=== PATIENT | female | born 1970 | race Caucasian/White ===

== ENCOUNTER 2016-12-11 10:10 | Emergency (ER) | payer BC ==
[~2016-12-11] VITALS: Ht 167.6 cm; Wt 71.7 kg
[2016-12-11] MEDS ORDERED: IOHEXOL 300 MG/ML 75 ML VIAL IV ONE (12:00)
[2016-12-11 12:15] LABS: BASO # 0.1 x10^3/uL (0.0-0.2); BASO % 1 % (0-3); EOS % 1 % (0-3); HEMATOCRIT 43.8 % (36.0-47.0); HEMOGLOBIN 14.8 g/dL (12.0-15.5); LYMPH # 2.1 x10^3/uL (1.0-4.8); LYMPH % 25 % (24-48); MEAN CORPUSCULAR HEMOGLOBIN 32 pg (25-35); MEAN CORPUSCULAR HGB CONC 34 g/dL (31-37); MEAN CORPUSCULAR VOLUME 96 fL (79-100); MONO % 6 % (0-9); NEUT % 68 % (31-73); PLATELET COUNT 226 x10^3/uL (140-400); RED BLOOD COUNT 4.55 x10^6/uL (3.50-5.40); WHITE BLOOD COUNT 8.6 x10^3/uL (4.0-11.0)
[2016-12-11] MEDS ORDERED: CONTRAST GIVEN MC PRN (12:15)
[2016-12-11 12:31] LABS: CALCIUM 9.2 mg/dL (8.5-10.1); CREATININE 0.9 mg/dL (0.6-1.0); GFR 66.8; POTASSIUM 4.2 mmol/L (3.5-5.1)
--- NOTE | 2016-12-11 13:07 | PHYS DOC ---
Past Medical History Past Medical History: GERD, UTI, Other Additional Past Medical Histor: OVARY ATTACHED TO BLADDER; ulcers to esophagus Past Surgical History: , Hysterectomy, Other Additional Past Surgical Histo: EXPLORATORY-d/t ovary rupture Smoking: Less than 1pk/day Alcohol Use: None Drug Use: None Adult General Chief Complaint Chief Complaint: OTHER COMPLAINTS [facility] HPI Patient is a 46 year old female who presents with right anterior neck swelling for 3 weeks. She denies any injury to her neck. She does not have any difficulty breathing or sore throat. She states that it feels different when she swallows but does not have difficulty swallowing. She states that her voice is more hoarse than usual. She has not had fever, nasal drainage, or cough. The patient was seen by her PCP for the swelling and had blood work done. She reports her elevated TSH and low T4. She had an ultrasound of the neck performed at an outpatient imaging center but has not received the results of this study. Her PCP is Dr. Galarza. Review of Systems Review of Systems Constitutional: Denies fever or chills. [] Eyes: Denies change in visual acuity, redness, or eye pain. [] HENT: Denies ear pain, nasal congestion or sore throat. [] Respiratory: Denies cough or shortness of breath. [] Cardiovascular: Denies chest pain, palpitations or edema. [] GI: Denies abdominal pain, nausea, vomiting, bloody stools or diarrhea. [] : Denies dysuria, hematuria or urinary frequency. [] Musculoskeletal: Denies back pain or joint pain. Reports right anterior neck swelling. Integument: Denies rash or skin lesions. [] Neurologic: Denies headache, focal weakness or sensory changes. [] Endocrine: Denies polyuria or polydipsia. [] Psych: Denies anxiety or depression. [] All systems reviewed and negative unless otherwise stated in the HPI. Current Medications Current Medications Current Medications Medications (Trade) Dose Ordered Sig/Neida Start Time Stop Time Status Last Admin Dose Admin Info (Do NOT chart on this entry -- for MONITORING) 1 each PRN DAILY PRN 12/11/16 12:15 12/13/16 12:14 Iohexol (Omnipaque 300 Mg/ml) 75 ml 1X ONCE 12/11/16 12:00 12/11/16 12:04 DC 12/11/16 12:54 75 ML Allergies Allergies Allergies Coded Allergies Type Severity Reaction Last Updated Verified Penicillins Allergy Severe Anaphylaxis 08/14/14 Yes ciprofloxacin HCl Allergy Intermediate Hives 12/11/16 Yes erythromycin base Allergy Intermediate 12/11/16 Yes sulfacetamide sodium Allergy Intermediate Hives 12/11/16 Yes Physical Exam Physical Exam Constitutional: Well developed, well nourished, no acute distress, non-toxic appearance. [] HENT: Normocephalic, atraumatic, bilateral external ears normal, oropharynx moist, no oral exudates, nose normal. [] Eyes: PERRLA, EOMI, conjunctiva normal, no discharge. [] Neck: Normal range of motion, no tenderness, supple, no stridor. There is swelling over the distal end of the sternocleidomastoid muscle on the right. There is no tenderness, erythema, or induration. There is no palpable enlargement of the thyroid gland. Cardiovascular: Heart rate regular rhythm, no murmur [] Lungs & Thorax: Bilateral breath sounds clear to auscultation without wheezes, rales, or rhonchi. Skin: Warm, dry, no erythema, no rash. [] Neurologic: Alert and oriented X 3, normal motor function, normal sensory function, no focal deficits noted. [] Psychologic: Affect normal, judgement normal, mood normal. [] Current Patient Data Vital Signs Vital Signs Date Time Temp Pulse Resp B/P Pulse Ox O2 Delivery O2 Flow Rate FiO2 12/11/16 12:30 66 18 125/74 98 Room Air 12/11/16 10:30 97.9 97.9 Lab Values Laboratory Tests Test 12/11/16 12:00 White Blood Count 8.6x10^3/uL (4.0-11.0) Red Blood Count 4.55x10^6/uL (3.50-5.40) Hemoglobin 14.8g/dL (12.0-15.5) Hematocrit 43.8% (36.0-47.0) Mean Corpuscular Volume 96fL (79-100) Mean Corpuscular Hemoglobin 32pg (25-35) Mean Corpuscular Hemoglobin Concent 34g/dL (31-37) Red Cell Distribution Width 14.0% (11.5-14.5) Platelet Count 226x10^3/uL (140-400) Neutrophils (%) (Auto) 68% (31-73) Lymphocytes (%) (Auto) 25% (24-48) Monocytes (%) (Auto) 6% (0-9) Eosinophils (%) (Auto) 1% (0-3) Basophils (%) (Auto) 1% (0-3) Neutrophils # (Auto) 5.8x10^3uL (1.8-7.7) Lymphocytes # (Auto) 2.1x10^3/uL (1.0-4.8) Monocytes # (Auto) 0.5x10^3/uL (0.0-1.1) Eosinophils # (Auto) 0.1x10^3/uL (0.0-0.7) Basophils # (Auto) 0.1x10^3/uL (0.0-0.2) Sodium Level 139mmol/L (136-145) Potassium Level 4.2mmol/L (3.5-5.1) Chloride Level 103mmol/L (98-107) Carbon Dioxide Level 29mmol/L (21-32) Anion Gap 7 (6-14) Blood Urea Nitrogen 16mg/dL (7-20) Creatinine 0.9mg/dL (0.6-1.0) Estimated GFR (Cockcroft-Gault) 66.8 Glucose Level 86mg/dL (70-99) Calcium Level 9.2mg/dL (8.5-10.1) Laboratory Tests 12/11/16 12:00 Laboratory Tests 12/11/16 12:00 EKG EKG [] Radiology/Procedures Radiology/Procedures REASON: right neck swelling CT of the neck with contrast, 12/11/2016: History: Neck lump and swelling Multidetector CT imaging was performed following an IV bolus injection of iodinated contrast material. A BB was placed over the area of reported palpable concern in the right neck. No underlying mass or other abnormality is seen in the area of reported concern. No cervical adenopathy is seen. The thyroid, parotid and submandibular glands are unremarkable. No abnormality is evident in the laryngeal region. The airway is unremarkable. IMPRESSION: No significant abnormality is detected. Course & Med Decision Making Course & Med Decision Making Pertinent Labs and Imaging studies reviewed. (See chart for details) Patient presents with right anterior neck swelling for 3 weeks. She does not have any dyspnea, dysphagia, or pharyngitis. On exam, there is swelling over the sternocleidomastoid muscle without thyroid enlargement. The patient was seen and examined by Dr. Corbett as well. There are no significant laboratory abnormalities today. CT of soft tissue neck with contrast does not show any abnormalities. I discussed results with patient. She is instructed follow-up with her PCP. Return precautions were discussed. She verbalizes understanding and agrees with plan. Dragon Disclaimer Dragon Disclaimer This electronic medical record was generated, in whole or in part, using a voice recognition dictation system. Departure Departure Impression: Primary Impression: Localized swelling, mass and lump, neck Disposition: 01 HOME, SELF-CARE Condition: STABLE Referrals: ANA MARIA GALARZA (PCP) Patient Instructions: Soft Tissue Injury of the Neck, [id number] Additional Instructions: Your CT did not show any concerning findings today. Your lab work was normal today. We did not test your thyroid function again today. Please follow-up with your primary care doctor regarding the swelling in your neck. Return to the emergency department if you have difficulty breathing, difficulty swallowing, or other new or concerning symptoms. MASOOD HAMILTON Dec 11, 2016 13:07
--- NOTE | 2016-12-11 13:18 | RAD ---
PQRS Compliance Statement: One or more of the following individualized dose reduction techniques were utilized for this examination: 1. Automated exposure control 2. Adjustment of the mA and/or kV according to patient size 3. Use of iterative reconstruction technique CT of the neck with contrast, 12/11/2016: History: Neck lump and swelling Multidetector CT imaging was performed following an IV bolus injection of iodinated contrast material. A BB was placed over the area of reported palpable concern in the right neck. No underlying mass or other abnormality is seen in the area of reported concern. No cervical adenopathy is seen. The thyroid, parotid and submandibular glands are unremarkable. No abnormality is evident in the laryngeal region. The airway is unremarkable. IMPRESSION: No significant abnormality is detected.
[2016-12-11 14:36] VITALS: BP 104/75
[2016-12-11] MEDS ORDERED: FAMO20TA5 PO (22:39)
== END 2016-12-11 14:37 | disposition home or self-care (01) ==
LOC: ER 10:10
DX: R22.1 Localized swelling, mass and lump, neck (principal); F17.210 Nicotine dependence, cigarettes, uncomplicated; K21.9 Gastro-esophageal reflux disease without esophagitis; Z88.0 Allergy status to penicillin; Z88.1 Allergy status to other antibiotic agents; Z88.2 Allergy status to sulfonamides
CPT/HCPCS: 36415; 70491; 80048; 85027; 99285; Q9967

== ENCOUNTER 2016-12-11 20:30 | Emergency (ER) | payer BC ==
[~2016-12-11] VITALS: Ht 167.6 cm; Wt 71.7 kg
[2016-12-11 21:01] VITALS: BP 138/76
[2016-12-11] MEDS ORDERED: LIDO:MAALOX:DONNATAL 1:1:1 15 ML SINGLE DOSE SWSW ONE (21:45)
[2016-12-11] MEDS ORDERED: FAMO20TA5 PO (22:39)
--- NOTE | 2016-12-11 22:39 | PHYS DOC ---
Past Medical History Past Medical History: GERD, P.U.D., UTI, Other Past Surgical History: , Hysterectomy, Other Additional Past Surgical Histo: Exploratory laparoscopy Alcohol Use: None Drug Use: None Adult General Chief Complaint Chief Complaint: CHEST PAIN HPI HPI Patient is a 46 year old female who presents with burning epigastric abdominal pain radiating into her right upper chest and back that has started over the past few hours. She does have slight nausea has developed as her symptoms have worsened. States she has felt this way with prior acid reflux pain. She was prior seen and evaluated in the ED for a different complaint and wanted to also be evaluated for this after she left. She denies cough, dyspnea, palpitations, diaphoresis, exertional symptoms, orthopnea, hemoptysis, leg pain or swelling, dark or bloody stools.. Review of Systems Review of Systems Constitutional: Denies fever or chills [] Eyes: Denies change in visual acuity, redness, or eye pain [] HENT: Denies nasal congestion or sore throat [] Respiratory: Denies cough or shortness of breath [] Cardiovascular: No additional information not addressed in HPI [] GI: Denies vomiting, bloody stools or diarrhea [] : Denies dysuria or hematuria [] Musculoskeletal: Denies back pain or joint pain [] Integument: Denies rash or skin lesions [] Neurologic: Denies headache, focal weakness or sensory changes [] Endocrine: Denies polyuria or polydipsia [] Current Medications Current Medications Current Medications Medications (Trade) Dose Ordered Sig/Neida Start Time Stop Time Status Last Admin Dose Admin Multi-Ingredient Mouthwash/Gargle (Gi Cocktail Single Dose) 15 ml 1X ONCE 12/11/16 21:45 12/11/16 21:46 DC 12/11/16 22:17 15 ML Allergies Allergies Allergies Coded Allergies Type Severity Reaction Last Updated Verified Penicillins Allergy Severe Anaphylaxis 08/14/14 Yes ciprofloxacin HCl Allergy Intermediate Hives 12/11/16 Yes erythromycin base Allergy Intermediate 12/11/16 Yes sulfacetamide sodium Allergy Intermediate Hives 12/11/16 Yes Physical Exam Physical Exam Constitutional: Well developed, well nourished, no acute distress, non-toxic appearance. [] HENT: Normocephalic, atraumatic, bilateral external ears normal, oropharynx moist, no oral exudates, nose normal. [] Eyes: PERRLA, EOMI. [] Neck: Normal range of motion, supple. [] Cardiovascular:Heart rate regular rhythm [] Lungs & Thorax: Bilateral breath sounds clear to auscultation [] Abdomen: Bowel sounds normal, soft, no tenderness. [] Skin: Warm, dry, no erythema, no rash. [] Back: No tenderness, no CVA tenderness. [] Extremities: ROM intact, no edema. [] Neurologic: Alert and oriented X 3, normal motor function, normal sensory function, no focal deficits noted. [] Psychologic: Affect normal, judgement normal, mood normal. [] Current Patient Data Vital Signs Vital Signs Date Time Temp Pulse Resp B/P Pulse Ox O2 Delivery O2 Flow Rate FiO2 12/11/16 21:01 98.1 69 20 138/76 98 Room Air 98.1 Lab Values Laboratory Tests Test 12/11/16 20:56 Troponin I Quantitative < 0.017ng/mL (0.000-0.055) EKG EKG EKG as interpreted by me as normal sinus rhythm, rate 71, no ST-T changes, normal intervals, no ectopy Course & Med Decision Making Course & Med Decision Making Pertinent Labs and Imaging studies reviewed. (See chart for details) Workup is unremarkable. She is feeling better after GI cocktail. Discussed she should follow up with GI clinic and she stated she would like to contact information for GI clinic. Return precautions given. She understands and agrees with plan. Dragon Disclaimer Dragon Disclaimer This electronic medical record was generated, in whole or in part, using a voice recognition dictation system. Departure Departure Impression: Primary Impression: Chest pain Disposition: 01 HOME, SELF-CARE Condition: STABLE Referrals: ANA MARIA GALARZA (PCP) CHIQUIS DOMINGO MD Patient Instructions: Gastritis, Adult, [id number] Additional Instructions: Take famotidine for possible gastritis. Follow-up with your primary care doctor and GI clinic. Please call [phone] for GI clinic appointment. Return for any concerns. Scripts Famotidine 20 Mg [id number] Mg PO BID #30 TAB Prov:Satinder MELENDEZ MD 12/11/16 Problem Qualifiers Primary Impression: Chest pain Chest pain type: unspecified Qualified Code: R07.9 - Chest pain, unspecified Satinder MELENDEZ MD Dec 11, 2016 22:39
--- NOTE | 2016-12-12 14:17 | EKG ---
[facility] [address] [place] [address] Test Date: 2016-12-11 Test Time: 20:40:45 Pat Name: MELINDA RAMOS Department: Room: Gender: F Regional Program Manager: : 1970 Requested By: Satinder MELENDEZ Order Number: [id number] Reading MD: Measurements Intervals Brant Rate: 71 P: 34 MT: 138 QRS: 33 QRSD: 80 T: 32 QT: 372 QTc: 409 Interpretive Statements SINUS RHYTHM NORMAL ECG RI6.01 Unconfirmed report No previous ECG available for comparison
== END 2016-12-11 22:56 | disposition home or self-care (01) ==
LOC: ER 20:30
DX: R07.9 Chest pain, unspecified (principal); R10.13 Epigastric pain; K21.9 Gastro-esophageal reflux disease without esophagitis; Z88.0 Allergy status to penicillin; Z87.440 Personal history of urinary (tract) infections; Z87.11 Personal history of peptic ulcer disease; Z90.710 Acquired absence of both cervix and uterus; Z88.1 Allergy status to other antibiotic agents; Z88.8 Allergy status to other drugs, medicaments and biological substances
CPT/HCPCS: 36415; 84484; 93005; 99285-25

== ENCOUNTER 2017-04-18 12:59 | Emergency (ER) | payer BC ==
[~2017-04-18] VITALS: Ht 167.6 cm; Wt 71.7 kg
[~2017-04-18 12:59] MED LIST: FAMO20TA5 PO
--- NOTE | 2017-04-18 13:35 | PHYS DOC ---
Past Medical History Past Medical History: GERD, P.U.D., UTI, Other Additional Past Medical Histor: OVARY ATTACHED TO BLADDER; ulcers to esophagus Past Surgical History: , Hysterectomy, Other Additional Past Surgical Histo: Exploratory laparoscopy Alcohol Use: None Drug Use: None Adult General Chief Complaint Chief Complaint: GERD HPI HPI Patient is a 46 year old female who presents with achy chest and upper back pain. Pt reports symptoms are similar to prior episodes where the pt received a GI cocktail and this resolves her symptoms. Reports h/o 80mg daily omeprazole and missed two doses, she thinks this caused her symptoms. He is been seen 2 times in the ER for similar complaints in the past. She states the first time she had an extensive workup and cardiology follow-up with negative stress test and no cardiac findings. 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 She went on vacation forgot her medication that's why she missed her doses. She states the other time she is coming to the ER she's received a GI cocktail and her symptoms completely resolved. Review of Systems Review of Systems Constitutional: Denies fever or chills [] Eyes: Denies change in visual acuity, redness, or eye pain [] HENT: Denies nasal congestion or sore throat [] Respiratory: Denies cough or shortness of breath [] Cardiovascular: No additional information not addressed in HPI [] GI: Denies abdominal pain, nausea, vomiting, bloody stools or diarrhea [] : Denies dysuria or hematuria [] Musculoskeletal: Denies back pain or joint pain [] Integument: Denies rash or skin lesions [] Neurologic: Denies headache, focal weakness or sensory changes [] Current Medications Current Medications Current Medications Medications (Trade) Dose Ordered Sig/Neida Start Time Stop Time Status Last Admin Dose Admin Multi-Ingredient Mouthwash/Gargle (Gi Cocktail Single Dose) 15 ml 1X ONCE 04/18/17 13:45 04/18/17 13:46 DC 04/18/17 13:33 15 ML Allergies Allergies Allergies Coded Allergies Type Severity Reaction Last Updated Verified Penicillins Allergy Severe Anaphylaxis 08/14/14 Yes ciprofloxacin HCl Allergy Intermediate Hives 12/11/16 Yes erythromycin base Allergy Intermediate 12/11/16 Yes sulfacetamide sodium Allergy Intermediate Hives 12/11/16 Yes Physical Exam Physical Exam Constitutional: Well developed, well nourished, no acute distress, non-toxic appearance. [] HENT: Normocephalic, atraumatic, bilateral external ears normal, oropharynx moist, no oral exudates, nose normal. [] Eyes: PERRLA, EOMI, conjunctiva normal, no discharge. [] Neck: Normal range of motion, no tenderness, supple, no stridor. [] Cardiovascular:Heart rate regular with regular rhythm, no murmur [] Lungs & Thorax: Bilateral breath sounds clear to auscultation, no wheeze or crackles. Abdomen: Bowel sounds normal, soft, no tenderness, no masses, no pulsatile masses. [] Skin: Warm, dry, no erythema, no rash. [] Back: No tenderness, no CVA tenderness. [] Extremities: No tenderness, no cyanosis, no clubbing, ROM intact, no edema. [] Neurologic: Alert and oriented X 3, normal motor function, normal sensory function, no focal deficits noted. [] Psychologic: Affect normal, judgement normal, mood normal. [] Current Patient Data Vital Signs Vital Signs Date Time Temp Pulse Resp B/P (MAP) Pulse Ox O2 Delivery O2 Flow Rate FiO2 04/18/17 14:32 65 20 102/66 (78) 96 04/18/17 13:21 98.2 Room Air 98.2 EKG EKG 63 bpm, sinus, normal axis, normal intervals, no ST elevation or depression, nonischemic T waves, interpreted by me [] Radiology/Procedures Radiology/Procedures [] Course & Med Decision Making Course & Med Decision Making Pertinent Labs and Imaging studies reviewed. (See chart for details) Pt given a GI cocktail and her symptoms resolved. Patient's requesting to leave , requesting a lidocaine prescription. I did give her oropharyngeal lidocaine prescription and recommend that she attempts Maalox if she has a similar symptom. She is to follow-up with her primary care physician as well as continue her medication. Return precautions given. Dragon Disclaimer Dragon Disclaimer This electronic medical record was generated, in whole or in part, using a voice recognition dictation system. Departure Departure Impression: Primary Impression: GERD (gastroesophageal reflux disease) Disposition: HOME, SELF-CARE Condition: STABLE Referrals: ANA MARIA GALARZA (PCP) VA REAVES MD Apr 18, 2017 13:35
--- NOTE | 2017-04-18 13:36 | EKG ---
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
[2017-04-18] MEDS ORDERED: LIDO:MAALOX:DONNATAL 1:1:1 15 ML SINGLE DOSE SWSW ONE (13:45)
[2017-04-18 14:32] VITALS: BP 102/66
== END 2017-04-18 14:32 | disposition home or self-care (01) ==
LOC: ER 12:59
DX: K21.9 Gastro-esophageal reflux disease without esophagitis (principal); K22.70 Barrett's esophagus without dysplasia; Z87.440 Personal history of urinary (tract) infections; Z90.710 Acquired absence of both cervix and uterus; Z98.890 Other specified postprocedural states; Z87.11 Personal history of peptic ulcer disease; Z88.0 Allergy status to penicillin; Z88.1 Allergy status to other antibiotic agents; Z88.2 Allergy status to sulfonamides
CPT/HCPCS: 93005; 99283-25

== ENCOUNTER 2017-12-06 20:12 | Emergency (ER) | payer BC ==
[2017-12-06 20:57] LABS: ADD MAN DIFF? NO
[2017-12-06 20:58] LABS: BASO # 0.1 x10^3/uL (0.0-0.2); BASO % 1 % (0-3); EOS # 0.2 x10^3/uL (0.0-0.7); EOS % 2 % (0-3); HEMATOCRIT 46.1 % (36.0-47.0); HEMOGLOBIN 15.5 g/dL (12.0-15.5); LYMPH % 38 % (24-48); MEAN CORPUSCULAR HEMOGLOBIN 32 pg (25-35); MEAN CORPUSCULAR HGB CONC 34 g/dL (31-37); MEAN CORPUSCULAR VOLUME 95 fL (79-100); MONO # 0.6 x10^3/uL (0.0-1.1); MONO % 8 % (0-9); NEUT % 51 % (31-73); PLATELET COUNT 222 x10^3/uL (140-400); RED BLOOD COUNT 4.87 x10^6/uL (3.50-5.40); RED CELL DISTRIBUTION WIDTH 13.1 % (11.5-14.5)
[2017-12-06 21:05] LABS: BILIRUBIN,URINE NEGATIVE (NEG); CLARITY,URINE CLEAR; COLOR,URINE YELLOW; GLUCOSE,URINE NEGATIVE (NEG); NITRITE,URINE NEGATIVE (NEG); PH,URINE 6.5; PROTEIN,URINE NEGATIVE (NEG-TRACE); UROBILINOGEN,URINE 0.2 mg/dL (0.2 mg/dL)
[2017-12-06 21:08] LABS: ANION GAP 10 (6-14); BLOOD UREA NITROGEN 15 mg/dL (7-20); BUN/CREATININE RATIO 17 (6-20); CALCIUM 9.3 mg/dL (8.5-10.1); CARBON DIOXIDE 27 mmol/L (21-32); CHLORIDE 104 mmol/L (98-107); CREATININE 0.9 mg/dL (0.6-1.0); GFR 66.5; GLUCOSE 96 mg/dL (70-99); POTASSIUM 3.8 mmol/L (3.5-5.1); SODIUM 141 mmol/L (136-145)
[2017-12-06 21:11] LABS: BACTERIA,URINE MODERATE /HPF (0-FEW); RBC,URINE RARE /HPF (0-2); SQUAMOUS EPITHELIAL CELL,UR MOD /LPF
[2017-12-06] MEDS: ONDANSETRON PF 4 MG/2 ML VIAL. IV ×2 (21:12)
[2017-12-06] MEDS: IV NORMAL SALINE 1000ML BAG 1,000 ML IV ×2 (21:12)
[2017-12-06 21:13] LABS: ALBUMIN 4.1 g/dL (3.4-5.0); ALBUMIN/GLOBULIN RATIO 1.1 (1.0-1.7); ALK PHOS 54 U/L (46-116); ALT (SGPT) 27 U/L (14-59); AST (SGOT) 17 U/L (15-37); TOTAL BILIRUBIN 0.3 mg/dL (0.2-1.0); TOTAL PROTEIN 7.7 g/dL (6.4-8.2)
[2017-12-06] MEDS: fentaNYL PF VIAL 100 MCG/2 ML VIAL IV ×2 (21:13)
[2017-12-06 21:17] LABS: TROPONINI < 0.017 ng/mL (0.000-0.055)
[2017-12-06] MEDS ORDERED: CONTRAST GIVEN MC ×2 (21:30)
[2017-12-06] MEDS: IOHEXOL 300 MG/ML 100ML VIAL. IV ×2 (21:44)
== END 2017-12-06 22:52 | disposition home or self-care (01) ==
LOC: ER 20:12
DX: R51 Headache (principal); M54.2 Cervicalgia; F17.200 Nicotine dependence, unspecified, uncomplicated; Z88.1 Allergy status to other antibiotic agents; Z90.710 Acquired absence of both cervix and uterus; Z88.0 Allergy status to penicillin; Z88.2 Allergy status to sulfonamides
CPT/HCPCS: 36415; 70450; 70496; 70498; 71045; 80053; 81001; 84484; 85025; 87086; 87186; 93005; 96361; 96374; 96375; 99285-25; J2405; J3010; J7030; Q9967

== ENCOUNTER 2019-04-20 12:08 | Emergency (ER) | payer BC ==
[~2019-04-20] VITALS: Ht 167.6 cm; Wt 66.7 kg
[2019-04-20 12:54] VITALS: BP 150/65
[2019-04-20] MEDS ORDERED: LIDO:MAALOX 1:1 20 ML SINGLE DOSE. SWSW ONE (13:15)
[2019-04-20] MEDS ORDERED: IV NORMAL SALINE 1000ML BAG 1,000 ML IV ONE (13:15)
[2019-04-20] MEDS ORDERED: ONDANSETRON PF 4 MG/2 ML VIAL. IV ONE (13:15)
[2019-04-20] MEDS ORDERED: FAMOTIDINE 20 MG/2 ML VIAL IVP ONE (13:15)
[2019-04-20 13:30] LABS: BILIRUBIN,URINE NEGATIVE (NEG); CLARITY,URINE CLEAR; COLOR,URINE YELLOW; NITRITE,URINE NEGATIVE (NEG); PROTEIN,URINE NEGATIVE (NEG-TRACE); UROBILINOGEN,URINE 0.2 mg/dL (0.2 mg/dL)
[2019-04-20 13:40] LABS: BACTERIA,URINE MANY /HPF (0-FEW); RBC,URINE 0 /HPF (0-2)
[2019-04-20 14:05] LABS: BASO % 1 % (0-3); EOS # 0.1 x10^3/uL (0.0-0.7); EOS % 2 % (0-3); HEMATOCRIT 42.7 % (36.0-47.0); HEMOGLOBIN 14.3 g/dL (12.0-15.5); LYMPH # 1.7 x10^3/uL (1.0-4.8); LYMPH % 31 % (24-48); MEAN CORPUSCULAR HEMOGLOBIN 32 pg (25-35); MEAN CORPUSCULAR HGB CONC 34 g/dL (31-37); MEAN CORPUSCULAR VOLUME 95 fL (79-100); MONO # 0.5 x10^3/uL (0.0-1.1); MONO % 9 % (0-9); NEUT # 3.3 x10^3uL (1.8-7.7); NEUT % 58 % (31-73); PLATELET COUNT 201 x10^3/uL (140-400); RED BLOOD COUNT 4.51 x10^6/uL (3.50-5.40); RED CELL DISTRIBUTION WIDTH 13.5 % (11.5-14.5); WHITE BLOOD COUNT 5.6 x10^3/uL (4.0-11.0)
--- NOTE | 2019-04-20 14:15 | PHYS DOC ---
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 Patient denies any vomiting but states she's been nauseated. Denies any diarrhea. She states she had an upper GI scope in November which diagnosed her w ith stomach ulcers. She states she was put on Zantac which she takes every day. Review of Systems Review of Systems Constitutional: Denies fever or chills [] Eyes: Denies change in visual acuity, redness, or eye pain [] HENT: Denies nasal congestion or sore throat [] Respiratory: Denies cough or shortness of breath [] Cardiovascular: No additional information not addressed in HPI [] GI: Reports bilateral abdominal pain nausea, denies vomiting, bloody stools or diarrhea [] : Denies dysuria or hematuria [] Musculoskeletal: Denies back pain or joint pain [] Integument: Denies rash or skin lesions [] Neurologic: Denies headache, focal weakness or sensory changes [] All other systems were reviewed and found to be within normal limits, except as documented in this note. Current Medications Current Medications Current Medications Medications (Trade) Dose Ordered Sig/Neida Start Time Stop Time Status Last Admin Dose Admin Famotidine (Pepcid Vial) 20 mg 1X ONCE 04/20/19 13:15 04/20/19 13:16 DC 04/20/19 13:42 20 MG Info (CONTRAST GIVEN -- Rx MONITORING) 1 each PRN DAILY PRN 04/20/19 14:45 04/22/19 14:44 Iohexol (Omnipaque 300 Mg/ml) 75 ml 1X ONCE 04/20/19 14:45 04/20/19 14:46 DC 04/20/19 14:54 75 ML Multi-Ingredient Mouthwash/Gargle (Gi Cocktail) 20 ml 1X ONCE 04/20/19 13:15 04/20/19 13:16 DC 04/20/19 13:40 20 ML Ondansetron HCl (Zofran) 4 mg 1X ONCE 04/20/19 13:15 04/20/19 13:16 DC 04/20/19 13:44 4 MG Sodium Chloride 1,000 ml @ 1,000 mls/hr 1X ONCE 04/20/19 13:15 04/20/19 14:14 DC 04/20/19 13:41 1,000 MLS/HR Allergies Allergies Allergies Coded Allergies Type Severity Reaction Last Updated Verified Penicillins Allergy Severe Anaphylaxis 08/14/14 Yes ciprofloxacin HCl Allergy Intermediate Hives 12/11/16 Yes erythromycin base Allergy Intermediate 12/11/16 Yes sulfacetamide sodium Allergy Intermediate Hives 12/11/16 Yes Physical Exam Physical Exam Constitutional: Well developed, well nourished, no acute distress, non-toxic appearance. [] HENT: Normocephalic, atraumatic, bilateral external ears normal, oropharynx moist, no oral exudates, nose normal. [] Eyes: PERRLA, EOMI, conjunctiva normal, no discharge. [] Neck: Normal range of motion, no tenderness, supple, no stridor. [] Cardiovascular:Heart rate regular rhythm, no murmur [] Lungs & Thorax: Bilateral breath sounds clear to auscultation [] Abdomen: Bowel sounds normal, soft, no tenderness, no masses, no pulsatile masses. [] Skin: Warm, dry, no erythema, no rash. [] Back: No tenderness, no CVA tenderness. [] Extremities: No tenderness, no cyanosis, no clubbing, ROM intact, no edema. [] Neurologic: Alert and oriented X 3, normal motor function, normal sensory function, no focal deficits noted. [] Psychologic: Affect normal, judgement normal, mood normal. [] Current Patient Data Vital Signs Vital Signs Date Time Temp Pulse Resp B/P (MAP) Pulse Ox O2 Delivery O2 Flow Rate FiO2 04/20/19 12:54 98.5 69 20 150/65 (93) 100 Room Air 98.5 Lab Values Laboratory Tests Test 04/20/19 12:55 04/20/19 14:00 Urine Collection Type Unknown Urine Color Yellow Urine Clarity Clear Urine pH 7.0 Urine Specific [place] 1.010 Urine Protein Negative mg/dL (NEG-TRACE) Urine Glucose (UA) Negative mg/dL (NEG) Urine Ketones (Stick) Negative mg/dL (NEG) Urine Blood Negative (NEG) Urine Nitrite Negative (NEG) Urine Bilirubin Negative (NEG) Urine Urobilinogen Dipstick 0.2 mg/dL (0.2 mg/dL) Urine Leukocyte Esterase Trace (NEG) Urine RBC 0 /HPF (0-2) Urine WBC 1-4 /HPF (0-4) Urine Bacteria Many /HPF (0-FEW) White Blood Count 5.6 x10^3/uL (4.0-11.0) Red Blood Count 4.51 x10^6/uL (3.50-5.40) Hemoglobin 14.3 g/dL (12.0-15.5) Hematocrit 42.7 % (36.0-47.0) Mean Corpuscular Volume 95 fL (79-100) Mean Corpuscular Hemoglobin 32 pg (25-35) Mean Corpuscular Hemoglobin Concent 34 g/dL (31-37) Red Cell Distribution Width 13.5 % (11.5-14.5) Platelet Count 201 x10^3/uL (140-400) Neutrophils (%) (Auto) 58 % (31-73) Lymphocytes (%) (Auto) 31 % (24-48) Monocytes (%) (Auto) 9 % (0-9) Eosinophils (%) (Auto) 2 % (0-3) Basophils (%) (Auto) 1 % (0-3) Neutrophils # (Auto) 3.3 x10^3uL (1.8-7.7) Lymphocytes # (Auto) 1.7 x10^3/uL (1.0-4.8) Monocytes # (Auto) 0.5 x10^3/uL (0.0-1.1) Eosinophils # (Auto) 0.1 x10^3/uL (0.0-0.7) Basophils # (Auto) 0.0 x10^3/uL (0.0-0.2) Sodium Level 140 mmol/L (136-145) Potassium Level 4.2 mmol/L (3.5-5.1) Chloride Level 104 mmol/L (98-107) Carbon Dioxide Level 27 mmol/L (21-32) Anion Gap 9 (6-14) Blood Urea Nitrogen 14 mg/dL (7-20) Creatinine 0.9 mg/dL (0.6-1.0) Estimated GFR (Cockcroft-Gault) 66.3 BUN/Creatinine Ratio 16 (6-20) Glucose Level 86 mg/dL (70-99) Calcium Level 8.9 mg/dL (8.5-10.1) Total Bilirubin 0.3 mg/dL (0.2-1.0) Aspartate Amino Transferase (AST) 15 U/L (15-37) Alanine Aminotransferase (ALT) 22 U/L (14-59) Alkaline Phosphatase 49 U/L (46-116) Total Protein 6.8 g/dL (6.4-8.2) Albumin 3.7 g/dL (3.4-5.0) Albumin/Globulin Ratio 1.2 (1.0-1.7) Lipase 190 U/L (73-393) Ethyl Alcohol Level < 10 mg/dL (0-10) Laboratory Tests 04/20/19 14:00 Laboratory Tests 04/20/19 14:00 EKG EKG [] Radiology/Procedures Radiology/Procedures PROCEDURE: CT ABD PELV W/ IV CONTRST ONLY PQRS Compliance Statement: One or more of the following individualized dose reduction techniques were utilized for this examination: 1. Automated exposure control 2. Adjustment of the mA and/or kV according to patient size 3. Use of iterative reconstruction technique CT abdomen/pelvis with contrast 04/20/2019 1:12 PM INDICATION: Abdominal pain with history of gastritis COMPARISON: CT abdomen/pelvis August 14, 2014 TECHNIQUE: Multiple axial CT images of the abdomen and pelvis were obtained after the intravenous administration of 75 mL Omnipaque 300. Coronal and sagittal reformats are provided. FINDINGS: Lung bases are clear. Heart size is within normal limits. Liver, spleen, bilateral adrenal glands, pancreas and gallbladder are normal in appearance. The abdominal aorta is normal in course and caliber. There are no pathologically enlarged lymph nodes in the abdomen and pelvis. There is no abdominal free fluid. There is no free intraperitoneal air. Moderate calcified and noncalcified atheromatous plaque is noted. Moderate colonic diverticulosis. Small and large bowel are normal in caliber. There is no evidence for bowel obstruction. There are no pericolonic inflammatory changes. A normal, nondilated appendix is visualized without adjacent inflammatory changes. No significant inflammatory changes are identified involving the stomach or proximal duodenum. The kidneys enhance symmetrically. There is no suspicious renal mass. There is no hydronephrosis. There are no suspected calculi within the kidneys, ureters or urinary bladder. Urinary bladder is within normal limits given degree of distention. No suspicious pelvic or adnexal mass. No suspicious osseous abnormality is identified. IMPRESSION: No acute abnormality is identified involving the abdomen and pelvis. Specifically, no perigastric inflammatory changes are identified. Electronically signed by: Timbo Azul MD (04/20/2019 3:00 PM) [id number] DICTATED and SIGNED BY: TIMBO AZUL MD DATE: 04/20/19 1500 Course & Med Decision Making Course & Med Decision Making Pertinent Labs and Imaging studies reviewed. (See chart for details) This is a 48-year-old female patient presenting to the ED today complaining of a burning pain with bloating to bilateral upper abdomen that began a week ago. Has history of gastritis and stomach ulcers. Also complaining of nausea but no vomiting. CBC, CMP, lipase-negative for any acute findings. Urine analysis noted for trace amount of leukocytes-no indication for treatment. CT of the abdomen and pelvic is negative for any acute findings. Patient was given GI cocktail IV fluid Zofran and Pepcid. Discharged to home. Instructed to continue following up with her own GI doctor. She states the Zantac she states it is not helping. Offered omeprazole. She states she is already taking it. Offered her Carafate. D/c to home. Dragon Disclaimer Dragon Disclaimer This electronic medical record was generated, in whole or in part, using a voice recognition dictation system. Departure Departure Impression: Primary Impression: GERD (gastroesophageal reflux disease) Additional Impression: Abdominal pain Disposition: HOME, SELF-CARE Condition: STABLE Referrals: ELINA WILDE (PCP) Patient Instructions: Abdominal Pain, Diet for Gastroesophageal Reflux Disease, Adult Additional Instructions: You were evaluated in the emergency room for abdominal pain. Your workup was negative for any acute findings. Please follow-up with a GI doctor in the course of next week. Scripts Sucralfate (CARAFATE) 1 Gm Tablet 1 TAB PO QID, #20 TAB 1 Refill Prov: BRYANT HERNANDEZ EBER 04/20/19 Problem Qualifiers Primary Impression: GERD (gastroesophageal reflux disease) Esophagitis presence: esophagitis presence not specified Qualified Codes: K21.9 - Gastro-esophageal reflux disease without esophagitis Additional Impression: Abdominal pain Abdominal location: upper abdomen, unspecified Qualified Codes: R10.10 - Upper abdominal pain, unspecified BRYANT HERNANDEZ PHLEBOTOMY DIRECTOR Apr 20, 2019 14:15
[2019-04-20 14:20] LABS: CALCIUM 8.9 mg/dL (8.5-10.1); CREATININE 0.9 mg/dL (0.6-1.0); GFR 66.3; POTASSIUM 4.2 mmol/L (3.5-5.1)
[2019-04-20 14:34] LABS: ALBUMIN 3.7 g/dL (3.4-5.0); ALBUMIN/GLOBULIN RATIO 1.2 (1.0-1.7); TOTAL BILIRUBIN 0.3 mg/dL (0.2-1.0); TOTAL PROTEIN 6.8 g/dL (6.4-8.2)
[2019-04-20] MEDS ORDERED: IOHEXOL 300 MG/ML 100ML VIAL. IV ONE (14:45)
[2019-04-20] MEDS ORDERED: CONTRAST GIVEN. MC PRN (14:45)
--- NOTE | 2019-04-20 15:03 | RAD ---
PQRS Compliance Statement: One or more of the following individualized dose reduction techniques were utilized for this examination: 1. Automated exposure control 2. Adjustment of the mA and/or kV according to patient size 3. Use of iterative reconstruction technique CT abdomen/pelvis with contrast 04/20/2019 1:12 PM INDICATION: Abdominal pain with history of gastritis COMPARISON: CT abdomen/pelvis August 14, 2014 TECHNIQUE: Multiple axial CT images of the abdomen and pelvis were obtained after the intravenous administration of 75 mL Omnipaque 300. Coronal and sagittal reformats are provided. FINDINGS: Lung bases are clear. Heart size is within normal limits. Liver, spleen, bilateral adrenal glands, pancreas and gallbladder are normal in appearance. The abdominal aorta is normal in course and caliber. There are no pathologically enlarged lymph nodes in the abdomen and pelvis. There is no abdominal free fluid. There is no free intraperitoneal air. Moderate calcified and noncalcified atheromatous plaque is noted. Moderate colonic diverticulosis. Small and large bowel are normal in caliber. There is no evidence for bowel obstruction. There are no pericolonic inflammatory changes. A normal, nondilated appendix is visualized without adjacent inflammatory changes. No significant inflammatory changes are identified involving the stomach or proximal duodenum. The kidneys enhance symmetrically. There is no suspicious renal mass. There is no hydronephrosis. There are no suspected calculi within the kidneys, ureters or urinary bladder. Urinary bladder is within normal limits given degree of distention. No suspicious pelvic or adnexal mass. No suspicious osseous abnormality is identified. IMPRESSION: No acute abnormality is identified involving the abdomen and pelvis. Specifically, no perigastric inflammatory changes are identified. Electronically signed by: Vivi Azul MD (04/20/2019 3:00 PM) [id number]
[2019-04-20] MEDS ORDERED: SUCR1TAB35 PO (15:17)
[2019-04-20 15:37] LABS: AMPHETAMINE/METHAMPHETAMINE NEG (NEG); BARBITURATES NEG (NEG); BENZODIAZEPINES NEG (NEG); CANNABINOIDS NEG (NEG); COCAINE NEG (NEG); METHADONE NEG (NEG); OPIATES NEG (NEG); PHENCYCLIDINE NEG (NEG)
== END 2019-04-20 15:44 | disposition home or self-care (01) ==
LOC: ER 12:08
DX: K21.9 Gastro-esophageal reflux disease without esophagitis (principal); F17.200 Nicotine dependence, unspecified, uncomplicated; Z98.890 Other specified postprocedural states; Z90.710 Acquired absence of both cervix and uterus; Z88.0 Allergy status to penicillin; Z88.2 Allergy status to sulfonamides; Z88.1 Allergy status to other antibiotic agents
CPT/HCPCS: 36415; 74177; 80053; 80307; 81001; 83690; 85025; 96374; 96375; 99285; G0480; J2405; J3490; J7030; Q9967

== ENCOUNTER 2020-02-21 14:07 | Emergency (ER) | payer BC ==
[~2020-02-21] VITALS: Ht 167.6 cm; Wt 68.1 kg
[~2020-02-21 14:07] MED LIST changes: +SUCR1TAB35 PO
[2020-02-21 14:15] VITALS: BP 147/95
[2020-02-21] MEDS ORDERED: PRED50TA PO (15:25)
--- NOTE | 2020-02-21 15:25 | PHYS DOC ---
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 pylori, laryngeal esophageal reflux, who presents to the ED today with multiple complaints. Patient reports she was seen by GI (in [place] Dr. Reyes) on Tuesday last week and had an EGD and her throat was stretched. She reports they thought she could have possible H. py neal and she was put on 3 medications including Flagyl, Cipro and Pepcid. She states she called the GI doctor reporting that she is having trouble with this medication she believes she was allergic to it and her throat was closing. GI took her off the medications 2 days. Patient states she prefers not want to see this GI doctor anymore in [place]. She is in the ED saying she still feels she has trouble swallowing. She is tolerating her secretions well, she had a banana this morning and tolerated it well. Review of Systems: Review of Systems: Constitutional: Denies fever or chills. [] Eyes: Denies change in visual acuity. [] HENT: Reports difficulty swallowing, denies nasal congestion or sore throat. [] Respiratory: Denies cough or shortness of breath. [] Cardiovascular: Denies chest pain or edema. [] GI: Denies abdominal pain, nausea, vomiting, bloody stools or diarrhea. [] : Denies dysuria. [] Musculoskeletal: Denies back pain or joint pain. [] Integument: Denies rash. [] Neurologic: Denies headache, focal weakness or sensory changes. [] Psychiatric: Denies depression or anxiety. [] Heart Score: Risk Factors: Risk Factors: DM, Current or recent (<one month) smoker, HTN, HLP, family hi story of CAD, obesity. Risk Scores: Score 0 - 3: 2.5% MACE over next 6 weeks - Discharge Home Score 4 - 6: 20.3% MACE over next 6 weeks - Admit for Clinical Observation Score 7 - 10: 72.7% MACE over next 6 weeks - Early Invasive Strategies Allergies: Allergies: Allergies Coded Allergies Type Severity Reaction Last Updated Verified Penicillins Allergy Severe Anaphylaxis 08/14/14 Yes ciprofloxacin HCl Allergy Intermediate Hives 12/11/16 Yes erythromycin base Allergy Intermediate 12/11/16 Yes metronidazole Allergy Intermediate 02/21/20 Yes sulfacetamide sodium Allergy Intermediate Hives 12/11/16 Yes tetracycline Allergy Unknown 02/21/20 Yes Physical Exam: PE: Constitutional: Well developed, well nourished, no acute distress, non-toxic appearance. [] HENT: Normocephalic, atraumatic, bilateral external ears normal, oropharynx moist, no oral exudates, nose normal. [] airway is open. Tolerating secretions well. Eyes: PERRLA, EOMI, conjunctiva normal, no discharge. [] Neck: Normal range of motion, no tenderness, supple, no stridor. [] Cardiovascular:Heart rate regular rhythm, no murmur [] Lungs & Thorax: Bilateral breath sounds clear to auscultation [] Abdomen: Bowel sounds normal, soft, no tenderness, no masses, no pulsatile masses. [] Skin: Warm, dry, no erythema, no rash. [] Back: No tenderness, no CVA tenderness. [] Extremities: No tenderness, no cyanosis, no clubbing, ROM intact, no edema. [] Neurologic: Alert and oriented X 3, normal motor function, normal sensory function, no focal deficits noted. [] Psychologic: Affect normal, judgement normal, mood normal. [] Current Patient Data: Vital Signs: Vital Signs Date Time Temp Pulse Resp B/P (MAP) Pulse Ox O2 Delivery O2 Flow Rate FiO2 02/21/20 14:15 97.6 75 20 147/95 (112) 99 Room Air 97.6 EKG: EKG: [] Radiology/Procedures: Radiology/Procedures: [] Course & Med Decision Making: Course & Med Decision Making Pertinent Labs and Imaging studies reviewed. (See chart for details) This is a 49-year-old female patient presenting to the ED today complaining of difficulty swallowing. See HPI for extensive information. Patient has no difficulty swallowing in the ED. She is tolerating her secretions. Recommended she follows up with the GI in [place] who has been seeing her over the provided GI from [facility]. June Disclaimer: June Disclaimer: This electronic medical record was generated, in whole or in part, using a voice recognition dictation system. Departure Departure Impression: Primary Impression: Dysphagia Qualified Codes: R13.10 - Dysphagia, unspecified Disposition: HOME, SELF-CARE Condition: STABLE Referrals: ELINA WILDE (PCP) LANETTE PAGE MD please follow up in the next 1 week with your GI doctor or the one we provided. Patient Instructions: Dysphagia Additional Instructions: Please follow-up with the GI doctor or the one provided in the next 1 to 2 weeks. Scripts Prednisone (PREDNISONE) 50 Mg Tablet 1 TAB PO DAILY, #5 TAB Prov: BRYANT HERNANDEZ APRN 02/21/20 BRYANT HERNANDEZ APRN February 21, 2020 15:25
== END 2020-02-21 15:35 | disposition home or self-care (01) ==
LOC: ER 14:07
DX: R13.10 Dysphagia, unspecified (principal); K21.9 Gastro-esophageal reflux disease without esophagitis; F17.200 Nicotine dependence, unspecified, uncomplicated; Z88.0 Allergy status to penicillin; Z88.1 Allergy status to other antibiotic agents; Z88.2 Allergy status to sulfonamides; Z88.8 Allergy status to other drugs, medicaments and biological substances
CPT/HCPCS: 99283

== ENCOUNTER 2020-05-02 12:59 | Emergency (ER) | payer BC ==
[~2020-05-02] VITALS: Ht 167.6 cm; Wt 148.0 kg
[~2020-05-02 12:59] MED LIST changes: +PRED50TA PO
[2020-05-02] MEDS ORDERED: IV NORMAL SALINE 1000ML BAG 1,000 ML IV SCH (13:40)
--- NOTE | 2020-05-02 13:49 | PHYS DOC ---
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 She states nothing makes this worse or better. She states that yesterday she did have 4 bouts of diarrhea. She states she does have a hiatal hernia and takes 2 Pepcid to the morning and a Protonix and does the same at night and that is all the medication she takes. She states that she does payne ve a history of colitis also. She denies any blood in her stools. She denies vomiting but does feel nauseated. She states that she had a little bit of chicken noodle soup yesterday but did not eat very much because she got full really fast. She states she does not really have pain but she is just very bloated and feels full and her abdomen is distended. She denies having any c onstipation issues. He states also she just got done with Macrobid for UTI she had 2 weeks ago. She states she still having the urinary frequency symptoms. Patient denies chest pain, shortness of breath, abdominal pain,, bloody stools, blood in vomit, vomiting, dizziness, headache, vision changes, numbness or tingling. 0 out of 10 pain. Review of Systems: Review of Systems: Constitutional: Denies fever or chills. [] Eyes: Denies change in visual acuity. [] HENT: Denies nasal congestion or sore throat. [] Respiratory: Denies cough and shortness of breath. [] Cardiovascular: Denies chest pain or edema. [] GI: Distention abdominal, nausea, denies vomiting, bloody stools. + diarrhea. [] : dysuria. [] Musculoskeletal: Denies back pain or joint pain. [] Integument: Denies rash. [] Neurologic: Denies headache, focal weakness or sensory changes. [] Endocrine: Denies polyuria or polydipsia. [] Lymphatic: Denies swollen glands. [] Psychiatric: Denies depression or anxiety. [] Heart Score: Risk Factors: Risk Factors: DM, Current or recent (<one month) smoker, HTN, HLP, family history of CAD, obesity. Risk Scores: Score 0 - 3: 2.5% MACE over next 6 weeks - Discharge Home Score 4 - 6: 20.3% MACE over next 6 weeks - Admit for Clinical Observation Score 7 - 10: 72.7% MACE over next 6 weeks - Early Invasive Strategies Allergies: Allergies: Allergies Coded Allergies Type Severity Reaction Last Updated Verified Penicillins Allergy Severe Anaphylaxis 08/14/14 Yes ciprofloxacin HCl Allergy Intermediate Hives 12/11/16 Yes erythromycin base Allergy Intermediate 12/11/16 Yes metronidazole Allergy Intermediate 02/21/20 Yes sulfacetamide sodium Allergy Intermediate Hives 12/11/16 Yes tetracycline Allergy Unknown 02/21/20 Yes Physical Exam: PE: Constitutional: Well developed, well nourished, no acute distress, non-toxic appearance. [] HENT: Normocephalic, atraumatic, bilateral external ears normal, oropharynx moist, no oral exudates, nose normal. [] Eyes: PERRLA, EOMI, conjunctiva normal, no discharge. [] Neck: Normal range of motion, no tenderness, supple, no stridor. [] Cardiovascular:Heart rate regular rhythm, no murmur [] Lungs & Thorax: Bilateral breath sounds clear to auscultation [] Abdomen: Bowel sounds normal, soft, no tenderness, no masses, no pulsatile mas ses. [] Skin: Warm, dry, no erythema, no rash. [] Back: No tenderness, no CVA tenderness. [] Extremities: No tenderness, no cyanosis, no clubbing, ROM intact, no edema. [] Neurologic: Alert and oriented X 3, normal motor function, normal sensory function, no focal deficits noted. [] Psychologic: Affect normal, judgement normal, mood normal. [] EKG: EKG: Read by Dr LOVELL [id number] and sinus rhythm and no STEMI[] Radiology/Procedures: Radiology/Procedures: [] Impression: [facility] [address] [place] [address] IMAGING REPORT Signed PATIENT: MELINDA RAMOS ACCOUNT: [id number] : 1970 LOCATION: ER AGE: 49 SEX: F EXAM STATUS: REG ER ORD. PHYSICIAN: CHELO FREEDMAN APRN REASON: bloating, nausea, pressure PROCEDURE: CT ABD PELV W/ IV CONTRST ONLY INDICATION: Reason: bloating, nausea, pressure / Spl. Instructions: INJ 60ML OMNI 300 / History: COMPARISON: April 2019 TECHNIQUE: Axial CT images obtained through the abdomen and pelvis with contrast. One or more of the following individualized dose reduction techniques were utilized for this examination: 1. Automated exposure control; 2. Adjustment of the mA and/or kV according to patient size; 3. Use of iterative reconstruction technique. FINDINGS: Dependent opacities at lung bases frequently from atelectasis. Moderate calcific atherosclerosis. No intrahepatic bile duct dilation. No peripancreatic fluid collection. Spleen unremarkable. Urinary bladder is distended at time of exam. Prominence of the right greater than left extrarenal pelvis. Mildly prominent enhancement of the ureter rivera bilaterally. Colonic diverticulosis. No periappendiceal inflammatory changes. No dilated loops of bowel to suggest obstruction. Degenerative changes of the spine with mild scoliotic curvature. IMPRESSION: * No evidence of bowel obstruction or appendicitis. * The urinary bladder is distended at time of exam with distention of the bilateral extrarenal pelvis with no obstructive ureter stone seen at this time. Electronically signed by: Kane Ackerman MD (05/02/2020 4:00 PM) [id number] DICTATED and SIGNED BY: KANE ACKERMAN MD DATE: 05/02/20 1600 Course & Med Decision Making: Course & Med Decision Making Pertinent Labs and Imaging studies reviewed. (See chart for details) Abdomen is distended but is soft and nontender. Alert and oriented. Skin pink warm and dry. Ambulatory with a steady gait. Speaks in full clear sentences. Patient has a history of esophageal ulcers, colitis, hiatal hernia, GERD, dysphasia, gastritis. See HPI. I have offered to give the patient Rocephin in the ED and to watch her make sure she does not have reaction to it for her UTI. She states that her primary care doctor only gave her 5 pills of Macrobid of which the normal dose of her Macrobid is twice a day for 5 days. She states that Macrobid always usually works for her. Patient states that she has swelling to be and does not want to wait for the Rocephin. 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 She states that she would like to have another complete round of Macrobid and if she gets worse she will come back or she will follow-up with her primary care provider. Blood work is unremarkable. CT shows no acute findings. There is no findings of why she is having abdominal bloating. [] Dragon Disclaimer: Dragon Disclaimer: This electronic medical record was generated, in whole or in part, using a voice recognition dictation system. Departure Departure Impression: Primary Impression: UTI (urinary tract infection) Qualified Codes: N39.0 - Urinary tract infection, site not specified Additional Impression: Abdominal bloating Disposition: HOME, SELF-CARE Condition: STABLE Referrals: ELINA WILDE (PCP) Patient Instructions: Bloating, Urinary Tract Infection Additional Instructions: Return if symptoms worsen. Follow-up with primary care provider. Drink plenty of fluids. Scripts Nitrofurantoin Monohyd/M-Cryst (MACROBID 100 MG CAPSULE) 100 Mg Capsule 1 CAP PO BID for 7 Days, #14 CAP 0 Refills Prov: CHELO FREEDMAN APRN 05/02/20 Justicifation of Admission Dx: Justifications for Admission: Justification of Admission Dx: N/A CHELO FREEDMAN APRN May 02, 2020 13:49
[2020-05-02 13:57] LABS: BILIRUBIN,URINE NEGATIVE (NEG); CLARITY,URINE CLEAR; COLOR,URINE YELLOW; NITRITE,URINE POSITIVE (NEG); PROTEIN,URINE NEGATIVE (NEG-TRACE); UROBILINOGEN,URINE 0.2 mg/dL (0.2 mg/dL)
[2020-05-02 14:04] LABS: RBC,URINE 0 /HPF (0-2)
[2020-05-02 14:05] LABS: BACTERIA,URINE MANY /HPF (0-FEW); SQUAMOUS EPITHELIAL CELL,UR FEW /LPF; WBC,URINE 20-40 /HPF (0-4)
[2020-05-02 14:06] LABS: BARBITURATES NEG (NEG); BENZODIAZEPINES NEG (NEG); CANNABINOIDS NEG (NEG); COCAINE NEG (NEG); METHADONE NEG (NEG); OPIATES NEG (NEG); PHENCYCLIDINE NEG (NEG)
[2020-05-02 14:08] LABS: AMPHETAMINE/METHAMPHETAMINE NEG (NEG)
[2020-05-02 14:11] LABS: BASO # 0.1 x10^3/uL (0.0-0.2); BASO % 1 % (0-3); EOS # 0.1 x10^3/uL (0.0-0.7); EOS % 2 % (0-3); HEMATOCRIT 43.2 % (36.0-47.0); HEMOGLOBIN 15.2 g/dL (12.0-15.5); LYMPH % 31 % (24-48); MEAN CORPUSCULAR HEMOGLOBIN 33 pg (25-35); MEAN CORPUSCULAR HGB CONC 35 g/dL (31-37); MEAN CORPUSCULAR VOLUME 94 fL (79-100); MONO # 0.5 x10^3/uL (0.0-1.1); MONO % 8 % (0-9); NEUT # 3.7 x10^3/uL (1.8-7.7); NEUT % 58 % (31-73); PLATELET COUNT 233 x10^3/uL (140-400); RED BLOOD COUNT 4.58 x10^6/uL (3.50-5.40); RED CELL DISTRIBUTION WIDTH 13.5 % (11.5-14.5); WHITE BLOOD COUNT 6.3 x10^3/uL (4.0-11.0)
[2020-05-02 14:17] LABS: PROTHROMBIN TIME PATIENT 13.3 SEC (11.7-14.0)
[2020-05-02 14:20] LABS: CALCIUM 8.8 mg/dL (8.5-10.1); CREATININE 1.1 mg/dL (0.6-1.0); GFR 52.4; POTASSIUM 3.7 mmol/L (3.5-5.1)
[2020-05-02 14:24] LABS: ALBUMIN 3.8 g/dL (3.4-5.0); ALBUMIN/GLOBULIN RATIO 1.1 (1.0-1.7); TOTAL BILIRUBIN 0.5 mg/dL (0.2-1.0); TOTAL PROTEIN 7.2 g/dL (6.4-8.2)
[2020-05-02] MEDS ORDERED: IOHEXOL 300 MG/ML 100ML VIAL. IV ONE (14:45)
[2020-05-02] MEDS ORDERED: CONTRAST GIVEN. MC PRN (14:45)
--- NOTE | 2020-05-02 16:03 | RAD ---
INDICATION: Reason: bloating, nausea, pressure / Spl. Instructions: INJ 60ML OMNI 300 / History: COMPARISON: April 2019 TECHNIQUE: Axial CT images obtained through the abdomen and pelvis with contrast. One or more of the following individualized dose reduction techniques were utilized for this examination: 1. Automated exposure control; 2. Adjustment of the mA and/or kV according to patient size; 3. Use of iterative reconstruction technique. FINDINGS: Dependent opacities at lung bases frequently from atelectasis. Moderate calcific atherosclerosis. No intrahepatic bile duct dilation. No peripancreatic fluid collection. Spleen unremarkable. Urinary bladder is distended at time of exam. Prominence of the right greater than left extrarenal pelvis. Mildly prominent enhancement of the ureter rivera bilaterally. Colonic diverticulosis. No periappendiceal inflammatory changes. No dilated loops of bowel to suggest obstruction. Degenerative changes of the spine with mild scoliotic curvature. IMPRESSION: * No evidence of bowel obstruction or appendicitis. * The urinary bladder is distended at time of exam with distention of the bilateral extrarenal pelvis with no obstructive ureter stone seen at this time. Electronically signed by: Jeremy Castaneda MD (05/02/2020 4:00 PM) [id number]
[2020-05-02] MEDS ORDERED: NITR100C62 PO (16:46)
[2020-05-02 17:08] VITALS: BP 138/72
== END 2020-05-02 17:10 | disposition home or self-care (01) ==
LOC: ER 12:59
DX: N39.0 Urinary tract infection, site not specified (principal); R14.0 Abdominal distension (gaseous); R19.7 Diarrhea, unspecified; K21.9 Gastro-esophageal reflux disease without esophagitis; K57.30 Diverticulosis of large intestine without perforation or abscess without bleeding; Z98.890 Other specified postprocedural states; F17.200 Nicotine dependence, unspecified, uncomplicated; Z88.0 Allergy status to penicillin; Z88.1 Allergy status to other antibiotic agents; Z88.2 Allergy status to sulfonamides; Z88.8 Allergy status to other drugs, medicaments and biological substances
CPT/HCPCS: 36415; 74177; 80053; 80307; 81001; 83690; 84484; 85025; 85610; 87086; 96360; 99285; J7030; Q9967